=== PATIENT | male | born 1955 | race Caucasian/White ===

== ENCOUNTER 2019-11-23 09:27 | Day surgery (SDC) | payer OTHER ==
[~2019-11-23] VITALS: Ht 180.3 cm; Wt 76.4 kg
--- NOTE | 2019-11-23 09:54 | NUR ---
PT ADMITTED TO [facility]. AGREES WITH PLANNED SURGERY. LUNG SOUNDS CLEAR.
--- NOTE | 2019-11-24 01:15 | NUR ---
AMBULATED IN HALLWAY FROM DOORWAY TO WINDOW AND BACK, APPROX 100FT AFTER URINATING 600ML CONCENTRATED SADA URINE. TOLERATED WELL, WILL CONTINUE TO MONITOR.
[2019-11-24 05:39] LABS: BASOPHILS ABSOLUTE AUTO 0.01 K/mm3 (0.00-0.23); BASOPHILS PERCENT AUTO 0 % (0-2); EOSINOPHILS PERCENT AUTO 0 % (0-6); Hemoglobin 12.6 g/dL (13.5-17.5); IMMATURE GRAN ABSOLUTE AUTO 0.03 K/mm3 (0.00-0.10); IMMATURE GRAN PERCENT AUTO 0 % (0-1); LYMPHOCYTES ABSOLUTE AUTO 0.66 K/mm3 (0.84-5.20); LYMPHOCYTES PERCENT AUTO 6 % (21-46); MONOCYTES PERCENT AUTO 4 % (4-13); Mean Corpuscular HGB 30.2 pg (26.0-34.0); Mean Corpuscular HGB Conc 33.2 g/dL (31.5-36.5); Mean Corpuscular Volume 91 fL (80-100); Mean Platelet Volume 10.1 fL (9.1-12.4); NEUTROPHILS ABSOLUTE AUTO 10.58 K/mm3 (1.96-9.15); NEUTROPHILS PERCENT AUTO 90 % (41-73); Platelet Count 186 K/mm3 (150-400); RDW Coefficient Variation 11.6 % (11.7-14.2); RDW Standard Deviation 38.7 fL (35.1-46.3); Red Blood Cell Count 4.17 M/mm3 (4.30-5.90); White Blood Cell Count 11.78 K/mm3 (4.00-11.30)
[2019-11-24 05:55] LABS: Anion Gap 4 mmol/L (6-16); Blood Urea Nitrogen 26 mg/dL (8-24); Bun/Creatinine Ratio 26.3 (12.0-20.0); CO2, Blood 28 mmol/L (21-32); Calcium, Blood 8.7 mg/dL (8.5-10.1); Chloride, Blood 106 mmol/L (98-108); Creatinine, Blood 0.99 mg/dL (0.60-1.20); Glomerular Filtration Rate >60 (60-); Glucose, Blood 111 mg/dL (70-99); Potassium, Blood 4.6 mmol/L (3.5-5.5); Sodium, Blood 138 mmol/L (136-145)
--- NOTE | 2019-11-24 05:55 | NUR ---
SHIFT SUMMARY HAS RESTED WELL, PAIN MANAGED WITH SCHEDULED TYLENOL, TORADOL, AND OXYCODONE PRN GIVEN ONCE. AMBULATED IN HALLWAY AND X1 TO BATHROOM TO URINATE, TOLERATED WELL. HAS NOT HAD A BM YET, BUT IS PASSING FLATUS. IVF INFUSING PER MD ORDERS. DENIES FURTHER NEEDS OR WANTS AT THIS TIME. SAFETY MEASURES IN PLACE. WILL GIVE HAND OFF TO ONCOMING SHIFT USING SBAR DURING BEDSIDE REPORT.
[2019-11-24] MEDS ORDERED: OXYC5 PO (12:46)
[2019-11-24] MEDS ORDERED: ASPI325EC PO (12:46)
[2019-11-24] MEDS ORDERED: PROM25 PO (12:47)
--- NOTE | 2019-11-24 15:25 | NUR ---
PATIENT D/C'D HOME WITH SPOUSE AT THIS TIME; BOTH STATE UNDERSTANDING OF MEDS, WOUND CARE, ACTIVITY, OP PT, F/U APPT, ETC. TOLERATING PO, VOIDING, PAIN STATED MINIMAL. NO ACUTE CHANGES OR C/O.
--- NOTE | 2019-11-24 15:40 | NUR ---
11/24/19 1540 Stephen Nova SURGICAL SIMPLEX RADIOPAQUE BONE CEMENT USED DURING CASE 2 PACKAGES.
== END 2019-11-24 15:30 | disposition home or self-care (01) ==
LOC: ORSCMMR 09:27 → ORD 12:00 → ORSCMMR 12:00 → SURS 15:38 → ORSCMMR 11-24 15:30
PROVIDERS: Orthopaedic Surgery
PROC: 0SRC069 Replacement of Right Knee Joint with Oxidized Zirconium on Polyethylene Synthetic Substitute, Cemented, Open Approach (ICD-10-PCS; principal; 2019-11-23 13:15)
PROC: 8E0YXBZ Computer Assisted Procedure of Lower Extremity (ICD-10-PCS; principal; 2019-11-23 13:15)
DX: M17.11 Unilateral primary osteoarthritis, right knee (principal); I10 Essential (primary) hypertension; E78.5 Hyperlipidemia, unspecified; Z79.899 Other long term (current) drug therapy
CPT/HCPCS: 36415; 73560-RT; 80048; 83735; 85025; 88300; 97110; 97116; 97161; A9270-GY; C1713; C1776; J0171; J0690; J0735; J1100; J1885; J2250; J2370; J2405; J2704; J2795; J7120

== ENCOUNTER 2020-04-04 09:28 | Day surgery (SDC) | payer OTHER ==
[~2020-04-04] VITALS: Ht 332.7 cm; Wt 76.9 kg
[~2020-04-04 09:28] MED LIST: ASPI325EC PO; IBUP800 PO; OXYC5 PO; PROM25 PO
--- NOTE | 2020-04-04 10:19 | NUR ---
Ambulatory in Day Surgery History, Chart, Medications and Allergies reviewed before start of procedure.Patient confirms NPO status and agrees with scheduled surgery. Patient reports completing Chlorhexadine shower X2 prior to admission to hospital.Surgical site prepped with 2% Chlorhexidine cloth wipe. Lungs clear T/O to Auscultation.
--- NOTE | 2020-04-04 17:31 | NUR ---
SHIFT SUMMARY PT A&OX4, VSS, L TKA, SURGICAL DRESSING/STEVEN WRAP CDI. PAIN MANAGED WITH 5 MG OXY & TYLENOL. RAYA PO, DENIES N&V. AMBULATING W/FWW & GB, SBA; UP TO CHAIR; PT MAMADOU COMPLETE. AWAITING POST OP VOID; IVF @ 70 MLS.HR. WILL REPORT TO ONCDEJA JAMESON RN.
--- NOTE | 2020-04-04 20:17 | NUR ---
WILLL CALL WHEN READY TO WALK AND TRY TO PEE
[2020-04-05 05:49] LABS: BASOPHILS ABSOLUTE AUTO 0.01 K/mm3 (0.00-0.23); BASOPHILS PERCENT AUTO 0 % (0-2); EOSINOPHILS PERCENT AUTO 0 % (0-6); Hematocrit 36.9 % (37.0-53.0); Hemoglobin 12.1 g/dL (13.5-17.5); IMMATURE GRAN ABSOLUTE AUTO 0.04 K/mm3 (0.00-0.10); IMMATURE GRAN PERCENT AUTO 0 % (0-1); LYMPHOCYTES ABSOLUTE AUTO 0.96 K/mm3 (0.84-5.20); LYMPHOCYTES PERCENT AUTO 8 % (21-46); MONOCYTES ABSOLUTE AUTO 0.72 K/mm3 (0.16-1.47); MONOCYTES PERCENT AUTO 6 % (4-13); Mean Corpuscular HGB 29.3 pg (26.0-34.0); Mean Corpuscular HGB Conc 32.8 g/dL (31.5-36.5); Mean Corpuscular Volume 89 fL (80-100); Mean Platelet Volume 10.5 fL (9.1-12.4); NEUTROPHILS ABSOLUTE AUTO 10.43 K/mm3 (1.96-9.15); NEUTROPHILS PERCENT AUTO 86 % (41-73); Platelet Count 171 K/mm3 (150-400); RDW Coefficient Variation 12.1 % (11.7-14.2); RDW Standard Deviation 39.3 fL (35.1-46.3); Red Blood Cell Count 4.13 M/mm3 (4.30-5.90); White Blood Cell Count 12.16 K/mm3 (4.00-11.30)
[2020-04-05 06:12] LABS: Anion Gap 8 mmol/L (6-16); Blood Urea Nitrogen 25 mg/dL (8-24); Bun/Creatinine Ratio 26.7 (12.0-20.0); CO2, Blood 26 mmol/L (21-32); Calcium, Blood 8.2 mg/dL (8.5-10.1); Chloride, Blood 103 mmol/L (98-108); Creatinine, Blood 0.94 mg/dL (0.60-1.20); Glomerular Filtration Rate >60 (60-); Glucose, Blood 115 mg/dL (70-99); Magnesium, Blood 2.1 mg/dL (1.6-2.4); Potassium, Blood 4.5 mmol/L (3.5-5.5); Sodium, Blood 137 mmol/L (136-145)
--- NOTE | 2020-04-05 07:15 | NUR ---
SHIFT SUMMARY POD 1 LEFT TKA. DRESSING C/D/I WITH POLAR PACK IN PLACE. A/OX4 WITH VSS. AMBULATING W/ FWW/SBA. PAIN MANAGED WITH PO MEDICATIONS AND TORADOL. RAYA PO INTAKE. ABX AND IVF INFUSED PER ORDERS. STILL AWAITING POST-OP VOID, STRAIGHT CATH W/350 OUT. UP IN CHAIR AT START OF SHIFT BUT REFUSING THIS MORNING. PT RESTING IN BED WITH CALL LIGHT IN REACH. WILL CONT TO MONITOR AND GIVE REPORT TO ONCOMING RN.
[2020-04-05] MEDS ORDERED: PROM25 PO (10:15)
[2020-04-05] MEDS ORDERED: SULTRIDS PO (10:15)
[2020-04-05] MEDS ORDERED: ROXICODONE5 MG PO (10:15)
[2020-04-05] MEDS ORDERED: ASPI325EC PO (10:15)
--- NOTE | 2020-04-05 14:05 | NUR ---
DISCHARGE PT PROVIDED WITH WRITTEN AND VERBAL DISCHARGE INSTRUCTIONS, HE REPORTED UNDERSTANDING. DRESSINGS PROVIDED FOR HOME DRESSING CHANGES. PT REPORTED HE HAD ALREADY GOTTEN HIS SCRIPTS FROM DR. AVALOS. PT ESCORTED OUT IN W/C AT APPROXIMATELY 1235 BY AMILCAR BUTLER.
--- NOTE | 2020-04-05 16:49 | NUR ---
04/05/20 1649 Jing Tristan VERIFICATIONS: EDIT CHART.
== END 2020-04-05 12:35 | disposition home or self-care (01) ==
LOC: ORSCMMR 09:28 → ORD 11:30 → ORSCMMR 11:30 → EDBD 11:30 → EDSEX 11:30 → SURS 15:13 → ORSCMMR 04-05 12:35
PROVIDERS: Orthopaedic Surgery
PROC: 0SRD0J9 Replacement of Left Knee Joint with Synthetic Substitute, Cemented, Open Approach (ICD-10-PCS; principal; 2020-04-04 11:30)
PROC: 8E0YXBZ Computer Assisted Procedure of Lower Extremity (ICD-10-PCS; principal; 2020-04-04 11:30)
DX: M17.12 Unilateral primary osteoarthritis, left knee (principal); I10 Essential (primary) hypertension; G47.33 Obstructive sleep apnea (adult) (pediatric)
CPT/HCPCS: 36415; 73560-LT; 80048; 83735; 85025; 88300; 97110; 97162; C1713; C1776; J0171; J0690; J0735; J1100; J1885; J2250; J2370; J2405; J2704; J2795; J3010; J3370; J7120

== ENCOUNTER → 2021-11-11 | Outpatient (CLI) | payer OTHER ==
[~2021-11-11] MED LIST changes: +ROXICODONE5 MG PO; +SULTRIDS PO
== END | disposition home or self-care (01) ==
LOC: LAB SHORT 11:01 → LAB 11:01
DX: C44.612 Basal cell carcinoma of skin of right upper limb, including shoulder (principal)
CPT/HCPCS: 88305

== ENCOUNTER → 2021-11-11 | Outpatient (CLI) | payer OTHER ==
[2021-11-11 12:55] LABS: Microalb/Creat Ratio UR, Rand 5.402 mg/g (0.000-30.000); Microalbumin, Random Urine 6.59 mg/L (0.000-20.000)
== END ==
LOC: LAB SHORT 07:00
PROVIDERS: Family Medicine
DX: R03.0 Elevated blood-pressure reading, without diagnosis of hypertension (principal)
CPT/HCPCS: 82043; 82570

== ENCOUNTER → 2022-01-01 | Outpatient (CLI) | payer OTHER | END | disposition home or self-care (01) | LOC: PLD 07:57 → LAB 07:57 → LAB SHORT 07:57 | DX: C44.612 Basal cell carcinoma of skin of right upper limb, including shoulder (principal) | CPT/HCPCS: 88305 ==

== ENCOUNTER → 2022-02-10 | Outpatient (CLI) | payer OTHER | END | disposition home or self-care (01) | LOC: PLD 12:20 → LAB 12:20 → LAB SHORT 12:20 | DX: L72.0 Epidermal cyst (principal) | CPT/HCPCS: 88304 ==

== ENCOUNTER → 2022-07-31 | Outpatient (CLI) | payer OTHER ==
[2022-08-05 10:11] LABS: METANEPHRINE, UR 56 ug/L (Undefined)
== END | disposition home or self-care (01) ==
LOC: LAB SHORT 11:25 → LAB 11:25
PROVIDERS: Family Medicine
DX: I95.1 Orthostatic hypotension (principal)
CPT/HCPCS: 81050; 83835

== ENCOUNTER 2023-11-18 15:08 | Emergency (ER) | payer OTHER ==
[~2023-11-18] VITALS: Ht 180.3 cm; Wt 79.4 kg
[~2023-11-18 15:08] MED LIST changes: +OMEPRAZOLE PO
[2023-11-18 15:45] VITALS: BP 191/113
[2023-11-18] MEDS ORDERED: Lisinopril2.5 MG PO (15:51)
[2023-11-19] MEDS ORDERED: OMEP20ER (11:02)
== END 2023-11-18 16:53 | disposition home or self-care (01) ==
LOC: ER 15:08
DX: R00.2 Palpitations (principal)
CPT/HCPCS: 93005; 93010; 99283-25

== ENCOUNTER 2023-11-19 10:39 | Day surgery (SDC) | payer OTHER ==
[~2023-11-19] VITALS: Ht 180.3 cm; Wt 77.5 kg
[~2023-11-19 10:39] MED LIST changes: +Lactated Ringer's 1,000 ML IV ONE; +Lisinopril2.5 MG PO; +propofoL 50 ML IV ONE
[2023-11-19] MEDS ORDERED: OMEP20ER (11:02)
[2023-11-19] MEDS ORDERED: Lactated Ringer's 1,000 ML IV ONE (11:54)
[2023-11-19 14:02] VITALS: BP 99/72
== END 2023-11-19 13:35 | disposition home or self-care (01) ==
LOC: ORSCSDS 10:39
PROVIDERS: Internal Medicine Gastroenterology
PROC: 0DB58ZX Excision of Esophagus, Via Natural or Artificial Opening Endoscopic, Diagnostic (ICD-10-PCS; principal; 2023-11-19 12:00)
PROC: 0DBL8ZX Excision of Transverse Colon, Via Natural or Artificial Opening Endoscopic, Diagnostic (ICD-10-PCS; principal; 2023-11-19 12:00)
PROC: 0DBP8ZX Excision of Rectum, Via Natural or Artificial Opening Endoscopic, Diagnostic (ICD-10-PCS; principal; 2023-11-19 12:00)
DX: K21.9 Gastro-esophageal reflux disease without esophagitis (principal); Z12.11 Encounter for screening for malignant neoplasm of colon; K22.70 Barrett's esophagus without dysplasia; D12.3 Benign neoplasm of transverse colon; D12.8 Benign neoplasm of rectum; K63.5 Polyp of colon; K57.30 Diverticulosis of large intestine without perforation or abscess without bleeding; I10 Essential (primary) hypertension; E78.5 Hyperlipidemia, unspecified; Z79.899 Other long term (current) drug therapy
CPT/HCPCS: 88305; J2704; J7120

== ENCOUNTER 2025-07-03 11:34 | Observation (INO) | payer OTHER ==
[2025-07-03] VITALS (9 sets, daily range): BP systolic 124–188; BP diastolic 80–111
[~2025-07-03] VITALS: Ht 180.3 cm; Wt 79.2 kg
[~2025-07-03 11:34] MED LIST changes: +LISI5 PO; -Lactated Ringer's 1,000 ML IV ONE; -Lisinopril2.5 MG PO; +OMEP20ER PO; -propofoL 50 ML IV ONE
[2025-07-03] MEDS ORDERED: Ondansetron HCl 2 MG / ML 2ML Vial IV PRN (12:50)
[2025-07-03] MEDS ORDERED: FLU VACC TS2025-26(6MOS UP)/PF 45 MCG/0.5 ML SYRINGE IM SCH (12:50)
[2025-07-03] MEDS ORDERED: NS 1,000 ML IV SCH (12:55)
[2025-07-03] MEDS ORDERED: Verapamil HCL 2.5 MG/ML 2ML Injection ONE (13:46)
[2025-07-03] MEDS ORDERED: Heparin Sodium 1000 Units/ML 10ML MDV ONE (13:46)
[2025-07-03] MEDS ORDERED: NS 250 ML IV ONE (13:46)
[2025-07-03] MEDS ORDERED: NS 1,000 ML IV ONE ×2 (13:46→14:08)
[2025-07-03] MEDS ORDERED: Nitroglycerin 2 MG/20 ML BTL ONE (13:46)
[2025-07-03 14:20] LABS: BASOPHILS ABSOLUTE AUTO 0.03 K/mm3 (0.00-0.23); BASOPHILS PERCENT AUTO 1 % (0-2); EOSINOPHILS ABSOLUTE AUTO 0.05 K/mm3 (0.00-0.68); EOSINOPHILS PERCENT AUTO 1 % (0-6); Hematocrit 47.1 % (37.0-53.0); Hemoglobin 16.5 g/dL (13.5-17.5); IMMATURE GRAN ABSOLUTE AUTO 0.01 K/mm3 (0.00-0.10); IMMATURE GRAN PERCENT AUTO 0 % (0-1); LYMPHOCYTES ABSOLUTE AUTO 1.26 K/mm3 (0.84-5.20); LYMPHOCYTES PERCENT AUTO 19 % (21-46); MONOCYTES ABSOLUTE AUTO 0.35 K/mm3 (0.16-1.47); MONOCYTES PERCENT AUTO 5 % (4-13); Mean Corpuscular HGB Conc 35.0 g/dL (31.5-36.5); Mean Corpuscular Volume 88 fL (80-100); NEUTROPHILS ABSOLUTE AUTO 4.95 K/mm3 (1.96-9.15); NEUTROPHILS PERCENT AUTO 74 % (41-73); NRBC ABSOLUTE 0.00 K/mm3 (0.00-0.02); NRBC Auto 0.0 /100 WBC (0.0-0.2); Platelet Count 207 K/mm3 (150-400); RDW Coefficient Variation 11.9 % (11.7-14.2); RDW Standard Deviation 38.1 fL (35.1-46.3)
[2025-07-03] MEDS ORDERED: Midazolam HCl 1MG / ML 2ML Vial ONE (14:36)
[2025-07-03] MEDS ORDERED: FentaNYL Citrate 50 MCG/ML 2 ML Injection ONE (14:36)
[2025-07-03 14:39] LABS: Prothrombin Time Results 11.0 Sec (9.7-11.5)
[2025-07-03 14:52] LABS: Alanine Aminotransfer (ALT/SGP 52.0 U/L (12-78); Albumin, Blood 4.8 g/dL (3.4-5.0); Albumin/Globulin Ratio 1.5 (0.8-1.8); Anion Gap 8.0 mmol/L (3-11); Aspartate Aminotrans (AST/SGOT 28.0 U/L (12-37); Bilirubin, Total 0.6 mg/dL (0.1-1.0); Blood Urea Nitrogen 18.0 mg/dL (8-24); CO2, Blood 28.0 mmol/L (21-32); Calcium, Blood 9.9 mg/dL (8.5-10.1); Chloride, Blood 102.0 mmol/L (98-108); Creatinine, Blood 0.88 mg/dL (0.60-1.20); Globulin, Blood 3.3 g/dL (2.2-4.0); Glucose, Blood 102.0 mg/dL (70-99); Potassium, Blood 3.8 mmol/L (3.5-5.5); Sodium, Blood 134.0 mmol/L (136-145); Total Protein, Blood 8.1 g/dL (6.4-8.2)
[2025-07-03] MEDS ORDERED: ASPI81CH PO (16:52)
--- NOTE | 2025-07-03 18:31 | NUR ---
DISCHARGE PATIENT PENDING DISCHARGE OF RADIAL SITE, 1CC LEFT. ANGIO NO INTERVENTIONS. DR. BUCHANAN AWARE. ISHCARGE INSTRUCTIONS ALREADY EDUCATED PATIENT AND . DENIES CHEST PAIN PRESSURE OR SOB AT REST. SPO2 >96% ON RA. NO ACUTE CONCERNS NOTED. ARMBOARD IN PLACE. >40 MINUTES OF EDUCATION PROVIDED ON RESTRICTIONS.
--- NOTE | 2025-07-03 18:49 | NUR ---
TR BAND RECOVERED CHG TEGADERM ON SITE, AWAITING MORE TIME TO ASESS FOR FURTHER BLEEDING BEFORE REMOVING IV AND TELE. PATIENT AGREEABLE TO PLAN NO ACUTE CONCERN FROM THIS RN, PATIENT OR PATIENT.
== END 2025-07-03 19:22 | disposition home or self-care (01) ==
LOC: PCU 11:34
PROVIDERS: Family Medicine; ADMIT Family Medicine
DX: I25.118 Atherosclerotic heart disease of native coronary artery with other forms of angina pectoris (principal); I11.0 Hypertensive heart disease with heart failure; I50.30 Unspecified diastolic (congestive) heart failure; E78.5 Hyperlipidemia, unspecified; K21.9 Gastro-esophageal reflux disease without esophagitis; Z79.899 Other long term (current) drug therapy
CPT/HCPCS: 76937; 80053; 84484; 85025; 85610; 85730; 93306; 93458; 99152; A9270; C1769; C1887; C1894; G0378; J1644; J2250; J3010; J7030; J7050; Q9967